=== PATIENT | male | born 1995 | race Two or more races ===

== ENCOUNTER 2017-01-23 05:02 | Emergency (ER) | payer OTHER ==
[~2017-01-23] VITALS: Ht 167.6 cm; Wt 68.0 kg
[2017-01-23 08:53] VITALS: BP 108/51
== END 2017-01-23 08:52 | disposition home or self-care (01) ==
LOC: ER 05:02
DX: S01.81XA Laceration without foreign body of other part of head, initial encounter (principal); Y04.0XXA Assault by unarmed brawl or fight, initial encounter; Y93.89 Activity, other specified; Y92.89 Other specified places as the place of occurrence of the external cause; Y99.8 Other external cause status
CPT/HCPCS: 12014; 70450; 70486